=== PATIENT | male | born 1965 | race Caucasian/White ===

== ENCOUNTER 2019-12-11 10:17 | Day surgery (SDC) | payer OTHER ==
[2019-12-11 11:16] VITALS: BMI 30.7
[2019-12-11 12:13] VITALS: TEMP 97.7
[2019-12-11 12:17] VITALS: BP 123/83; PULSE 67
== END 2019-12-11 12:30 | disposition home or self-care (01) ==
LOC: JASU-ENDO 10:17
PROVIDERS: ATTEND Internal Medicine Gastroenterology
PROC: 0DJD8ZZ Inspection of Lower Intestinal Tract, Via Natural or Artificial Opening Endoscopic (ICD-10-PCS; principal; 2019-12-11 11:15)
DX: R10.9 Unspecified abdominal pain (principal); K64.8 Other hemorrhoids